=== PATIENT | female | born 1950 | race Caucasian/White ===

== ENCOUNTER 2018-01-14 13:40 | Observation (INO) | payer MEDICARE, BC ==
[2018-01-14] VITALS (10 sets, daily range): BP systolic 106–155; BP diastolic 64–101; PULSE 94–115; RESP 15–28; TEMP 97.6–98.5; O2SAT 93–100
[~2018-01-14] VITALS: Ht 160 cm; Wt 70.0 kg
[2018-01-14] MEDS ORDERED: IOHEXOL 350 MG/ML 10 ML VIAL (for RAD DIAG) IVCONTRAST ONE (13:41)
[2018-01-14] MEDS ORDERED: SODIUM CHLORID 0.9% 500 ML INJ 500 ML IV ONE (14:00)
[2018-01-14] MEDS ORDERED: SODIUM CHLORIDE 0.9% FLUSH 10 ML FLUSH IVF PRN (14:00)
[2018-01-14] MEDS ORDERED: MORPHINE SULFATE 4 MG/ML INJ IV PUSH ONE (14:00)
[2018-01-14] MEDS ORDERED: SALI0.653 EACH NARE (14:22)
[2018-01-14] MEDS ORDERED: MOBI15TA PO (14:22)
[2018-01-14] MEDS ORDERED: HYDR-3516 PO (14:22)
[2018-01-14] MEDS ORDERED: FAMO20TA2 PO (14:22)
[2018-01-14] MEDS ORDERED: COLA100C5 PO (14:22)
[2018-01-14] MEDS ORDERED: ESTR0.5T PO (14:22)
[2018-01-14] MEDS ORDERED: FLUT50SP EACH NARE (14:22)
[2018-01-14] MEDS ORDERED: ALBUAER3 INH (14:22)
[2018-01-14] MEDS ORDERED: ANTIHISTAMINE PO (14:22)
[2018-01-14] MEDS ORDERED: DIPH50CA PO (14:22)
[2018-01-14] MEDS ORDERED: CALC600T10 PO (14:22)
[2018-01-14] MEDS ORDERED: MULTTAB67 PO (14:22)
--- NOTE | 2018-01-14 14:37 | RADRPT ---
EXAM DATE/TIME: 01/14/2018 14:02 [facility] COMPARISON: No previous studies available for comparison. INDICATIONS : Chest pain today. MEDICAL HISTORY : Asthma. SURGICAL HISTORY : None. ENCOUNTER: Initial ACUITY: 1 day PAIN SCORE: 9/10 LOCATION: Bilateral chest FINDINGS: A single view of the chest demonstrates the lungs to be symmetrically aerated without evidence of mas s, infiltrate or effusion. The cardiomediastinal contours are unremarkable. Osseous structures are intact. CONCLUSION: No acute disease. Franco Zambrano MD on January 14, 2018 at 14:35 Board Certified Radiologist. This report was verified electronically.
[2018-01-14 14:42] LABS: AUTOMATED NEUTROPHIL # 11.9 TH/MM3 (1.8-7.7); BASOPHIL % 0.3 % (0.0-2.0); EOSINOPHIL # 0.1 TH/MM3 (0-0.4); EOSINOPHIL % 0.6 % (0.0-4.0); HEMATOCRIT 42.6 % (35.0-46.0); HEMOGLOBIN 14.6 GM/DL (11.6-15.3); LYMPH % 7.2 % (9.0-44.0); MEAN CELL VOLUME 95.9 FL (80.0-100.0); MEAN CORPUSCULAR HEMOGLOBIN 32.9 PG (27.0-34.0); MEAN CORPUSCULAR HGB CONC 34.3 % (32.0-36.0); MEAN PLATELET VOLUME 6.9 FL (7.0-11.0); NEUT % 84.9 % (16.0-70.0); PLATELET COUNT 350 TH/MM3 (150-450); RED BLOOD COUNT 4.45 MIL/MM3 (4.00-5.30); RED CELL DISTRIBUTION WIDTH 13.1 % (11.6-17.2)
[2018-01-14 14:54] LABS: PROTHROMBIN TIME - PATIENT 9.8 SEC (9.8-11.6)
[2018-01-14 15:02] LABS: ALT (GPT) 20 U/L (10-53); AST (GOT) 17 U/L (15-37); BLOOD UREA NITROGEN 12 MG/DL (7-18); CALCIUM 9.2 MG/DL (8.5-10.1); CHLORIDE 107 MEQ/L (98-107); CREATININE 0.95 MG/DL (0.50-1.00); GLOMERULAR FILTRATION RATE 58 ML/MIN (>89); GLUCOSE,RANDOM 109 MG/DL (74-106); SODIUM (NA) 141 MEQ/L (136-145)
[2018-01-14 15:06] LABS: ALKALINE PHOSPHATASE 85 U/L (45-117); TOTAL BILIRUBIN ADULT 0.4 MG/DL (0.2-1.0); TOTAL PROTEIN 7.8 GM/DL (6.4-8.2); TROPONIN I LESS THAN 0.02 NG/ML (0.02-0.05)
--- NOTE | 2018-01-14 15:38 | PD ---
HPI Chief Complaint: Cardiac Complaint Time Seen by Provider: 13:46 Travel History International Travel<30 days: No Contact w/Intl Traveler<30days: No Traveled to known affect area: No History of Present Illness HPI Patient is a 67 year old female who comes in complaining of chest pain that radiates to her left shoulder. She says it started early this morning and has gotten worse. She took some Excedrin when it first started, and it did not help. She says the pain continued and got worse, so she took some Aspirin and came in. She says she feels some shortness of breath. She denies nausea or vomiting. She says nothing seems to make the pain better or worse. She has never had this pain before. Severity is moderate. PFSH Past Medical History Diminished Hearing: No Tetanus Vaccination: Unknown Influenza Vaccination: Yes ?: Not Menopausal: Yes Past Surgical History Genitourinary Surgery: Yes (BLADDER SLING, BLADDER SURGERY ) Gynecologic Surgery: Yes (HYSTERECTOMY ) Hysterectomy: Yes Tonsillectomy: Yes Other Surgery: Yes (FOOT SURGERY ) Social History Alcohol Use: Yes Tobacco Use: No Substance Use: No Allergies-Medications (Allergen,Severity, Reaction): Coded Allergies: No Known Allergies (Unverified , 01/14/18) Reported Meds & Prescriptions Reported Meds & Active Scripts Active Reported Saline Nasal [place] (Sodium Chloride) 0.65% [place] 1 [place] EACH NARE DAILY Fluticasone Nasal [place] 50 Mcg/Act Naspr 1 [place] EACH NARE DAILY 50 mcg/spray Colace (Docusate Sodium) 100 Mg Capsule 100 Mg PO BID Famotidine 20 Mg Tab 20 Mg PO DAILY [Antihistamine] 25 Mg PO BID Diphenhydramine HCl 50 Mg Cap 50 Mg PO HS Calcium + D3 (Calcium Carbonate-Cholecalciferol) 600-200 Mg-Unit Tab 1 Tab PO BID Multiple Vitamin 1 Tab 1 Tab PO DAILY Hydrocodone-Acetaminophen 5-325 mg Tab 2 Tab PO BID Proair Hfa 8.5 GM Inh (Albuterol Sulfate) 90 Mcg/Act Aer 1 Puff INH Q4H PRN 108 mcg/actuation Mobic (Meloxicam) 15 Mg Tab 15 Mg PO DAILY Estradiol 0.5 Mg Tab 0.5 Mg PO DAILY Review of Systems Except as stated in HPI: all other systems reviewed are Neg General / Constitutional: No: Fever, Chills HENT: No: Headaches, Lightheadedness Cardiovascular: Positive: Chest Pain or Discomfort Respiratory: Positive: Shortness of Breath Gastrointestinal: No: Nausea, Vomiting Musculoskeletal: No: Edema Skin: No Rash, No Change in Pigmentation Neurologic: No: Weakness, Dizziness Physical Exam Narrative GENERAL: Awake and alert, in obvious discomfort. SKIN: Focused skin assessment warm/dry. HEAD: Atraumatic. Normocephalic. EYES: Pupils equal and round. No scleral icterus. ENT: Mucous membranes pink and moist. NECK: Trachea midline. No JVD. CARDIOVASCULAR: Regular rate and rhythm. No murmur appreciated. RESPIRATORY: No accessory muscle use. Clear to auscultation. Breath sounds equal bilaterally. GASTROINTESTINAL: Abdomen soft, non-tender, nondistended. MUSCULOSKELETAL: No obvious deformities. No clubbing. No cyanosis. No edema. NEUROLOGICAL: Awake and alert. No obvious cranial nerve deficits. Motor grossly within normal limits. Normal speech. PSYCHIATRIC: Appropriate mood and affect; insight and judgment normal. Data Data Last Documented VS Vital Signs Date Time Temp Pulse Resp B/P (MAP) Pulse Ox O2 Delivery O2 Flow Rate FiO2 01/14/18 17:48 94 15 132/91 (105) 95 01/14/18 14:50 Room Air 01/14/18 14:00 2.00 01/14/18 13:41 97.6 Orders Orders Electrocardiogram (01/14/18 ) Complete Blood Count With Diff (01/14/18 13:52) Comprehensive Metabolic Panel (01/14/18 13:52) Prothrombin Time / Inr (Pt) (01/14/18 13:52) Act Partial Throm Time (Ptt) (01/14/18 13:52) Troponin I (01/14/18 13:52) Lipase (01/14/18 13:52) Chest, Single Ap (01/14/18 13:52) Ecg Monitoring (01/14/18 13:52) Bilateral Bp Monitoring (01/14/18 13:52) Iv Access Insert/Monitor (01/14/18 13:52) Oximetry (01/14/18 13:52) Oxygen Administration (01/14/18 13:52) Morphine Inj (Morphine Inj) (01/14/18 14:00) Sodium Chloride 0.9% Flush (Ns Flush) (01/14/18 14:00) Sodium Chlorid 0.9% 500 Ml Inj (Ns 500 M (01/14/18 14:00) Ct Pulmonary Angiogram (01/14/18 13:52) Iohexol 350 Inj (Omnipaque 350 Inj) (01/14/18 13:41) Ketorolac Inj (Toradol Inj) (01/14/18 16:30) Oxycodone-Acetamin 5-325 Mg (Percocet (01/14/18 16:30) Activity Bed Rest With Brp (01/14/18 18:04) Vital Signs (Adult) Q4H (01/14/18 18:04) Cardiac Rhythm .As Directed (01/14/18 18:) Notify Dr: Other .PRN (01/14/18 18:) Notify Parameters (01/14/18 18:04) Resp Oxygen Nasal Cannula (01/14/18 ) Diet Heart Healthy (01/14/18 Dinner) Ckmb (Isoenzyme) Profile (01/14/18 18:04) Ckmb (Isoenzyme) Profile (01/14/18 21:04) Troponin I (01/14/18 18:04) Troponin I (01/14/18 21:04) Electrocardiogram (01/14/18 18:04) Electrocardiogram (01/14/18 21:04) ^ Obtain (01/14/18 18:04) Sodium Chloride 0.9% Flush (Ns Flush) (01/14/18 18:15) Sodium Chloride 0.9% Flush (Ns Flush) (01/14/18 21:00) Acetaminophen (Tylenol) (01/14/18 18:15) Acetamin-Hydrocod 325-7.5 Mg ([place] 7.5 (01/14/18 18:15) Morphine Inj (Morphine Inj) (01/14/18 18:15) Ondansetron Inj (Zofran Inj) (01/14/18 18:15) Melting Operator / Telemetry RYDER.Q8H (01/14/18 18:04) Admit Order (Ed Use Only) (01/14/18 ) Labs Laboratory Tests Test 01/14/18 13:58 White Blood Count 14.0 TH/MM3 Red Blood Count 4.45 MIL/MM3 Hemoglobin 14.6 GM/DL Hematocrit 42.6 % Mean Corpuscular Volume 95.9 FL Mean Corpuscular Hemoglobin 32.9 PG Mean Corpuscular Hemoglobin Concent 34.3 % Red Cell Distribution Width 13.1 % Platelet Count 350 TH/MM3 Mean Platelet Volume 6.9 FL Neutrophils (%) (Auto) 84.9 % Lymphocytes (%) (Auto) 7.2 % Monocytes (%) (Auto) 7.0 % Eosinophils (%) (Auto) 0.6 % Basophils (%) (Auto) 0.3 % Neutrophils # (Auto) 11.9 TH/MM3 Lymphocytes # (Auto) 1.0 TH/MM3 Monocytes # (Auto) 1.0 TH/MM3 Eosinophils # (Auto) 0.1 TH/MM3 Basophils # (Auto) 0.0 TH/MM3 CBC Comment DIFF FINAL Differential Comment Prothrombin Time 9.8 SEC Prothromb Time International Ratio 1.0 RATIO Activated Partial Thromboplast Time 26.1 SEC Blood Urea Nitrogen 12 MG/DL Creatinine 0.95 MG/DL Random Glucose 109 MG/DL Total Protein 7.8 GM/DL Albumin 4.0 GM/DL Calcium Level 9.2 MG/DL Alkaline Phosphatase 85 U/L Aspartate Amino Transf (AST/SGOT) 17 U/L Alanine Aminotransferase (ALT/SGPT) 20 U/L Total Bilirubin 0.4 MG/DL Sodium Level 141 MEQ/L Potassium Level 3.3 MEQ/L Chloride Level 107 MEQ/L Carbon Dioxide Level 24.0 MEQ/L Anion Gap 10 MEQ/L Estimat Glomerular Filtration Rate 58 ML/MIN Troponin I LESS THAN 0.02 NG/ML Lipase 147 U/L MDM Medical Decision Making Medical Screen Exam Complete: Yes Emergency Medical Condition: Yes Interpretation(s) ECG shows sinus tachycardia at 109, no ST elevation or depression Differential Diagnosis ACS vs NSTEMI vs STEMI vs PE Narrative Course Patient is a 67-year-old female who comes in complaining of chest pain radiating to her back. On arrival, patient is very uncomfortable. IV established, labs sent. Patient connected to the night monitor. Given pain medicine. Labs sent show no acute abnormalities. Troponin is negative. CT of the chest performed shows no acute abnormalities. Patient required additional pain medicine, but did start to feel better. Concern is for ACS. She will be placed in chest pain center for further management. Diagnosis Primary Impression: Chest pain Qualified Codes: R07.9 - Chest pain, unspecified Admitting Information Admitting Physician Requests: Observation Gracia Walsh MD Jan 14, 2018 15:38
--- NOTE | 2018-01-14 16:22 | RADRPT ---
EXAM DATE/TIME: 01/14/2018 15:54 [facility] COMPARISON: No previous studies available for comparison. INDICATIONS : Chest and upper back pain. IV CONTRAST: 57 cc Omnipaque 350 (iohexol) IV RADIATION DOSE: 9.75 CTDIvol (mGy) MEDICAL HISTORY : None SURGICAL HISTORY : None. ENCOUNTER: Initial ACUITY: 1 day PAIN SCALE: 7/10 LOCATION: substernal TECHNIQUE: Volumetric scanning of the chest was performed using a pulmonary embolism protocol MIP images were re constructed. Using automated exposure control and adjustment of the mA and/or kV according to patien t size, radiation dose was kept as low as reasonably achievable to obtain optimal diagnostic quality images. DICOM format image data is available electronically for review and comparison. Follow-up recommendations for detected pulmonary nodules are based at a minimum on nodule size and pa tient risk factors according to Fleischner Society Guidelines. FINDINGS: PULMONARY ARTERIES: No filling defects are seen in the pulmonary arteries through the segmental level. LUNGS: Bibasilar atelectasis and/or scarring is noted posteriorly. There is no consolidation or pneumothorax . No concerning pulmonary nodule is visualized. PLEURAE: There is no pleural thickening or pleural effusion. MEDIASTINUM: There is good visualization of the great vessels of the middle mediastinum. No evidence of mediastin al or hilar adenopathy/mass. Coronary artery calcifications are noted. MUSCULOSKELETAL: Within normal limits for patient age. MISCELLANEOUS: The visualized upper abdominal organs demonstrate no acute abnormality. Small hiatal hernia is noted CONCLUSION: 1. No evidence of pulmonary embolism. 2. Bibasilar posterior atelectasis and/or scarring. 3. Coronary artery calcifications. 4. Small hiatal hernia. Franco Zambrano MD on January 14, 2018 at 16:18 Board Certified Radiologist. This report was verified electronically.
[2018-01-14] MEDS ORDERED: KETOROLAC TROMETHAMINE 30 MG/ML (IVP) VIAL IV PUSH ONE (16:30)
[2018-01-14] MEDS ORDERED: oxyCODONE/ACETAMINOPHEN 5 MG/325 MG TAB PO ONE (16:30)
[2018-01-14] MEDS ORDERED: MORPHINE SULFATE 4 MG/ML INJ IV PUSH PRN (18:15)
[2018-01-14] MEDS ORDERED: SODIUM CHLORIDE 0.9% FLUSH 10 ML FLUSH IV FLUSH PRN (18:15)
[2018-01-14] MEDS ORDERED: ONDANSETRON HCL 4 MG/2 ML VIAL IV PUSH PRN (18:15)
[2018-01-14] MEDS ORDERED: ACETAMINOPHEN 500 MG CPLT PO PRN (18:15)
[2018-01-14 19:08] LABS: TROPONIN I LESS THAN 0.02 NG/ML (0.02-0.05)
[2018-01-14 23:00] LABS: TROPONIN I LESS THAN 0.02 NG/ML (0.02-0.05)
[2018-01-14] MEDS: SODIUM CHLORIDE 0.9% FLUSH 10 ML FLUSH IV FLUSH SCH (23:41)
[2018-01-14] MEDS: ACETAMINOPHEN/HYDROcodone 325 MG/7.5 MG TAB PO PRN (23:43)
[2018-01-15 00:22] VITALS: PULSE 91
[2018-01-15 03:19] VITALS: BP 111/68; PULSE 97; RESP 18; TEMP 98.6; O2SAT 94
[2018-01-15] MEDS: ACETAMINOPHEN/HYDROcodone 325 MG/7.5 MG TAB PO PRN (03:46)
[2018-01-15 04:15] VITALS: PULSE 69
[2018-01-15] MEDS ORDERED: NITROGLYCERIN 0.4 MG SL 25 TABS/BTL SL PRN (07:30)
--- NOTE | 2018-01-15 08:11 | HHI.HP ---
HPI Primary Care Physician Primary Care Physician in [place] Chief Complaint Chest pain History of Present Illness 67 year old female without significant medical history presents to ER for further evaluation of chest pain. Onset yesterday morning 0530am. She was awaken from sleep with discomfort. Location substernal. Pain began as an ache. Midmorning discomfort changed to more of a pressure feeling and described "as someone sitting on my chest. Discomfort progressive became worse therefore came to ER for further evaluation. Severity moderate. Radiation to upper back. Duration constant. Associated symptoms included dyspnea and hurting to take a deep breath. No associated symptoms of nausea, vomiting, or diaphoreses. Twisting or laying on either side makes pain worse. Percocet given in ER relieved pain enough to allow sleeping a few hours last evening. Denies similar pain in the past. No recent illness within the last 6 weeks. Review of Systems General: No fatigue,weakness, fever, chills, recent illness, or change in appetite. Has been her general state of health. Visiting from [place], plans to return February 05. HEENT: No TREVINO, no vision changes, no nasal congestion or drainage, no dysphasia CV: Continues to have chest pain as stated above. RESP: No SOB, cough, wheeze, or recent URI. History of asthma, reporting rare need of rescue inhaler in last 2 years. GI: No nausea, vomiting, bowel changes. No change in appetite. : No dysuria, urgency, frequency. History of bladder suspension. EXT: No lower leg edema, no paraesthesias MS: No discomfort, recent injury, trauma, or change in ROM. Recent Left total knee replacement. NEURO: No change in memory, dizziness, difficulty with balance, LOC, motor/ sensory deficits PSYCH: No anxiety, depression, or situational stress. SKIN: No rashes, no concerning lesions Past Family Social History Allergies: Coded Allergies: No Known Allergies (Unverified , 01/14/18) Past Medical History GERD, asthma, seasonal allergies Past Surgical History Hysterectomy, bladder suspension, left total knee replacement, right meniscus repair, tonsillectomy Reported Medications Reported Meds & Active Scripts Active Reported Saline Nasal [place] (Sodium Chloride) 0.65% [place] 1 [place] EACH NARE DAILY Fluticasone Nasal [place] 50 Mcg/Act Naspr 1 [place] EACH NARE DAILY 50 mcg/spray Colace (Docusate Sodium) 100 Mg Capsule 100 Mg PO BID Famotidine 20 Mg Tab 20 Mg PO DAILY [Antihistamine] 25 Mg PO BID Diphenhydramine HCl 50 Mg Cap 50 Mg PO HS Calcium + D3 (Calcium Carbonate-Cholecalciferol) 600-200 Mg-Unit Tab 1 Tab PO BID Multiple Vitamin 1 Tab 1 Tab PO DAILY Hydrocodone-Acetaminophen 5-325 mg Tab 2 Tab PO BID PRN Proair Hfa 8.5 GM Inh (Albuterol Sulfate) 90 Mcg/Act Aer 1 Puff INH Q4H PRN 108 mcg/actuation Mobic (Meloxicam) 15 Mg Tab 15 Mg PO DAILY Estradiol 0.5 Mg Tab 0.5 Mg PO DAILY Active Ordered Medications Current Medications Medications (Trade) Dose Ordered Sig/Nelson Route Start Time Stop Time Status Last Admin (NS Flush) 2 ml UNSCH PRN IVF 01/14/18 14:00 01/14/18 15:21 (NS Flush) 2 ml UNSCH PRN IV FLUSH 01/14/18 18:15 (NS Flush) 2 ml BID IV FLUSH 01/14/18 21:00 01/14/18 23:41 (Tylenol) 500 mg Q4H PRN PO 01/14/18 18:15 ([place] 7.5-325 Mg) 1 tab Q4H PRN PO 01/14/18 18:15 01/15/18 03:46 (Morphine Inj) 2 mg Q4H PRN IV PUSH 01/14/18 18:15 (Zofran Inj) 4 mg Q6H PRN IV PUSH 01/14/18 18:15 (Nitrostat Sl) 0.4 mg Q5M PRN SL 01/15/18 07:30 (Aspirin) 325 mg DAILY PO 01/15/18 09:00 Family History Noncontributory for early onset cardiovascular disease. Social History No known coronary artery disease, hypertension, diabetes, or hyperlipidemia. Former smoker quitting over 35 years ago. Denies any alcohol use. Retired. . Lives in [place]. Endorses active lifestyle, somewhat reduced s/p left knee replacement Fall 2016. Past cardiac testing Nuclear chemical cardiac testing approx. 6 years ago. Reportedly unremarkable. Testing completed after a syncopal event. Physical Exam Vital Signs Vital Signs Date Time Temp Pulse Resp B/P (MAP) Pulse Ox O2 Delivery O2 Flow Rate FiO2 3/23/18 04:50 21 01/15/18 03:19 98.6 97 18 111/68 (82) 94 01/14/18 20:13 98.5 98 17 127/81 (96) 93 01/14/18 19:52 01/14/18 19:30 98 Nasal Cannula 3.00 01/14/18 18:59 100 16 131/81 (98) 98 Nasal Cannula 3.00 01/14/18 18:09 21 01/14/18 17:48 94 15 132/91 (105) 95 01/14/18 14:50 96 18 100 Room Air 01/14/18 14:00 99 Nasal Cannula 2.00 01/14/18 13:58 109 18 153/97 (115) 99 01/14/18 13:50 110 24 106/64 (78) 99 Room Air 01/14/18 13:47 Room Air 01/14/18 13:41 97.6 115 28 146/101 (116) 94 01/14/18 13:40 110 28 155/101 (119) 98 Room Air Physical Exam GENERAL: Alert WN, WD, NAD, pleasant, , elderly female HEAD: NC, AT CV: RRR, without murmur, rub, gallop, no JVD, S1-S2 no S3-S4. Substernal point tenderness with palpation. RESP: Clear lungs throughout bilateral, no crackles, wheeze, rhonchi, symmetrical chest rise, nonlabored, able to speak in full sentences ABD: Soft, NT, ND, no masses, positive bowel tones EXT: Pulses +24, no dependent edema MS: Normal tone 4 extremities, nontender, no obvious deformities, full range of motion NEURO: CN II through CN XII grossly intact, motor strength 5/5 PSYCH: A+O 3, pleasant affect, appropriate speech, mood, insight and judgment SKIN: Normal turgor, normal texture, no lesions, no rashes, even hair distribution Laboratory Laboratory Tests Test 01/14/18 13:58 01/14/18 18:30 01/14/18 21:32 White Blood Count 14.0 Red Blood Count 4.45 Hemoglobin 14.6 Hematocrit 42.6 Mean Corpuscular Volume 95.9 Mean Corpuscular Hemoglobin 32.9 Mean Corpuscular Hemoglobin Concent 34.3 Red Cell Distribution Width 13.1 Platelet Count 350 Mean Platelet Volume 6.9 Neutrophils (%) (Auto) 84.9 Lymphocytes (%) (Auto) 7.2 Monocytes (%) (Auto) 7.0 Eosinophils (%) (Auto) 0.6 Basophils (%) (Auto) 0.3 Neutrophils # (Auto) 11.9 Lymphocytes # (Auto) 1.0 Monocytes # (Auto) 1.0 Eosinophils # (Auto) 0.1 Basophils # (Auto) 0.0 CBC Comment DIFF FINAL Differential Comment Prothrombin Time 9.8 Prothromb Time International Ratio 1.0 Activated Partial Thromboplast Time 26.1 Blood Urea Nitrogen 12 Creatinine 0.95 Random Glucose 109 Total Protein 7.8 Albumin 4.0 Calcium Level 9.2 Alkaline Phosphatase 85 Aspartate Amino Transf (AST/SGOT) 17 Alanine Aminotransferase (ALT/SGPT) 20 Total Bilirubin 0.4 Sodium Level 141 Potassium Level 3.3 Chloride Level 107 Carbon Dioxide Level 24.0 Anion Gap 10 Estimat Glomerular Filtration Rate 58 Troponin I LESS THAN 0.02 LESS THAN 0.02 LESS THAN 0.02 Lipase 147 Total Creatine Kinase 81 146 Creatine Kinase MB 2.1 Result Diagram: 01/14/18 1358 01/14/18 1358 Imaging Last 48 hours Impressions Chest X-Ray 01/14/18 1352 Signed Impressions: Service Date/Time: December 14:02 - CONCLUSION: No acute disease. Franco Zambrano MD CT Angiography 01/14/18 1352 Signed Impressions: Service Date/Time: December 15:54 - CONCLUSION: 1. No evidence of pulmonary embolism. 2. Bibasilar posterior atelectasis and/or scarring. 3. Coronary artery calcifications. 4. Small hiatal hernia. Franco Zambrano MD Course EKG NSR, normal axis, no st t segment changes Caprini VTE Risk Assessment Caprini VTE Risk Assessment: Mod/High Risk (score >= 2) Caprini Risk Assessment Model Point Value = 1 Point Value = 2 Point Value = 3 Point Value = 5 Age 41-60 Minor surgery BMI > 25 kg/m2 Swollen legs Varicose veins or History of unexplained or recurrent spontaneous Oral contraceptives or hormone replacement Sepsis (< 1 month) Serious lung disease, including pneumonia (< 1 month) Abnormal pulmonary function Acute myocardial infarction Congestive heart failure (< 1 month) History of inflammatory bowel disease Medical patient at bed rest Age 61-74 Arthroscopic surgery Major open surgery (> 45 min) Laparoscopic surgery (> 45 min) Malignancy Confined to bed (> 72 hours) Immobilizing plaster cast Central venous access Age >= 75 History of VTE Family history of VTE Factor V Leiden Prothrombin [id number] Lupus anticoagulant Anticardiolipin antibodies Elevated serum homocysteine Heparin-induced thrombocytopenia Other congenital or acquired thrombophilia Stroke (< 1 month) Elective arthroplasty Hip, pelvis, or leg fracture Acute spinal cord injury (< 1 month) Prophylaxis Regimen Total Risk Factor Score Risk Level Prophylaxis Regimen 0-1 Low Early ambulation 2 Moderate Order ONE of the following: *Sequential Compression Device (SCD) *Heparin 5000 units SQ BID 3-4 Higher Order ONE of the following medications: *Heparin 5000 units SQ TID *Enoxaparin/Lovenox 40 mg SQ daily (WT < 150 kg, CrCl > 30 mL/min) *Enoxaparin/Lovenox 30 mg SQ daily (WT < 150 kg, CrCl > 10-29 mL/min) *Enoxaparin/Lovenox 30 mg SQ BID (WT < 150 kg, CrCl > 30 mL/min) AND/OR *Sequential Compression Device (SCD) 5 or more Highest Order ONE of the following medications: *Heparin 5000 units SQ TID (Preferred with Epidurals) *Enoxaparin/Lovenox 40 mg SQ daily (WT < 150 kg, CrCl > 30 mL/min) *Enoxaparin/Lovenox 30 mg SQ daily (WT < 150 kg, CrCl > 10-29 mL/min) *Enoxaparin/Lovenox 30 mg SQ BID (WT < 150 kg, CrCl > 30 mL/min) AND *Sequential Compression Device (SCD) Assessment and Plan Assessment and Plan #1 Atypical chest pain-admitted to chest pain center. Ruled out with 3 sets of EKGs, cardiac enzymes, and monitored overnight. Will be seen and evaluated by Dr. Solomon Rios. Discussed likelihood of completing a Lexiscan later this morning, after evaluation by ic design manager. Patient is agreeable to plan of care. Naturally, if cardiac testing unremarkable plans to discharge home with follow up with her PCP. Patient is agreeable to plan of care. #2 Musculoskeletal chest discomfort-reassurance provided discomfort appears to be musculoskeletal in nature. Upon discharge will encouraged use of short term NSAIDs x3 days and use of heat to affected area. Fern Gandhi Jan 15, 2018 08:10
[2018-01-15 08:39] VITALS: BP 112/75; PULSE 89; RESP 18; TEMP 98.3; O2SAT 94
[2018-01-15] MEDS ORDERED: ASPIRIN 325 MG TAB PO SCH (09:00)
[2018-01-15] MEDS: SODIUM CHLORIDE 0.9% FLUSH 10 ML FLUSH IV FLUSH SCH (09:26)
--- NOTE | 2018-01-15 10:41 | PD.CARD.PN ---
Subjective Subjective Remarks The patient was discussed with the nurse practitioner, medical records were reviewed and she was then seen and examined personally. She is a 67-year-old lady who developed pleuritic chest pain with some shortness of breath. The record as documented is appropriate. She underwent a left knee replacement about 6 months ago but has a negative CT of the lungs other than a mild hiatal hernia and some coronary calcification. Her pain has improved significantly since hospitalization and she is ruled out thus far using standard protocol. We will obtain a nuclear stress test for more definitive evaluation of her heart. Objective Medications Current Medications Medications (Trade) Dose Ordered Sig/Nelson Route Start Time Stop Time Status Last Admin (NS Flush) 2 ml UNSCH PRN IVF 01/14/18 14:00 01/14/18 15:21 (NS Flush) 2 ml UNSCH PRN IV FLUSH 01/14/18 18:15 (NS Flush) 2 ml BID IV FLUSH 01/14/18 21:00 01/15/18 09:26 (Tylenol) 500 mg Q4H PRN PO 01/14/18 18:15 ([place] 7.5-325 Mg) 1 tab Q4H PRN PO 01/14/18 18:15 01/15/18 03:46 (Morphine Inj) 2 mg Q4H PRN IV PUSH 01/14/18 18:15 (Zofran Inj) 4 mg Q6H PRN IV PUSH 01/14/18 18:15 (Nitrostat Sl) 0.4 mg Q5M PRN SL 01/15/18 07:30 (Aspirin) 325 mg DAILY PO 01/15/18 09:00 01/15/18 09:26 Vital Signs / I&O Vital Signs Date Time Temp Pulse Resp B/P (MAP) Pulse Ox O2 Delivery O2 Flow Rate FiO2 01/15/18 08:39 98.3 89 18 112/75 (87) 94 01/15/18 04:50 21 01/15/18 04:15 69 01/15/18 03:19 98.6 97 18 111/68 (82) 94 01/15/18 00:22 91 01/14/18 21:22 96 01/14/18 20:13 98.5 98 17 127/81 (96) 93 01/14/18 19:52 3/22/18 19:30 98 Nasal Cannula 3.00 01/14/18 18:59 100 16 131/81 (98) 98 Nasal Cannula 3.00 01/14/18 18:09 21 01/14/18 17:48 94 15 132/91 (105) 95 01/14/18 14:50 96 18 100 Room Air 01/14/18 14:00 99 Nasal Cannula 2.00 01/14/18 13:58 109 18 153/97 (115) 99 01/14/18 13:50 110 24 106/64 (78) 99 Room Air 01/14/18 13:47 Room Air 01/14/18 13:41 97.6 115 28 146/101 (116) 94 01/14/18 13:40 110 28 155/101 (119) 98 Room Air I/O 01/14/18 01/14/18 01/14/18 01/15/18 01/15/18 01/15/18 07:00 15:00 23:00 07:00 15:00 23:00 Intake Total 500 ml Balance 500 ml Intake IV Total 500 ml Physical Exam Well-nourished well-developed woman in no acute distress sitting comfortably visiting with her . Neck no JVD masses nodes or bruits Chest is tender along the costochondral junctions although this is significant is probably not the cause of her current pleuritic chest pain Lungs are clear to auscultation with no rales wheezes or rhonchi but it is difficult for her to take a deep breath Cardiovascular evaluation reveals a regular rhythm with no gallop rub or murmur Abdomen soft nontender Laboratory Laboratory Tests Test 01/14/18 13:58 01/14/18 18:30 01/14/18 21:32 White Blood Count 14.0 TH/MM3 Red Blood Count 4.45 MIL/MM3 Hemoglobin 14.6 GM/DL Hematocrit 42.6 % Mean Corpuscular Volume 95.9 FL Mean Corpuscular Hemoglobin 32.9 PG Mean Corpuscular Hemoglobin Concent 34.3 % Red Cell Distribution Width 13.1 % Platelet Count 350 TH/MM3 Mean Platelet Volume 6.9 FL Neutrophils (%) (Auto) 84.9 % Lymphocytes (%) (Auto) 7.2 % Monocytes (%) (Auto) 7.0 % Eosinophils (%) (Auto) 0.6 % Basophils (%) (Auto) 0.3 % Neutrophils # (Auto) 11.9 TH/MM3 Lymphocytes # (Auto) 1.0 TH/MM3 Monocytes # (Auto) 1.0 TH/MM3 Eosinophils # (Auto) 0.1 TH/MM3 Basophils # (Auto) 0.0 TH/MM3 CBC Comment DIFF FINAL Differential Comment Prothrombin Time 9.8 SEC Prothromb Time International Ratio 1.0 RATIO Activated Partial Thromboplast Time 26.1 SEC Blood Urea Nitrogen 12 MG/DL Creatinine 0.95 MG/DL Random Glucose 109 MG/DL Total Protein 7.8 GM/DL Albumin 4.0 GM/DL Calcium Level 9.2 MG/DL Alkaline Phosphatase 85 U/L Aspartate Amino Transf (AST/SGOT) 17 U/L Alanine Aminotransferase (ALT/SGPT) 20 U/L Total Bilirubin 0.4 MG/DL Sodium Level 141 MEQ/L Potassium Level 3.3 MEQ/L Chloride Level 107 MEQ/L Carbon Dioxide Level 24.0 MEQ/L Anion Gap 10 MEQ/L Estimat Glomerular Filtration Rate 58 ML/MIN Troponin I LESS THAN 0.02 NG/ML LESS THAN 0.02 NG/ML LESS THAN 0.02 NG/ML Lipase 147 U/L Total Creatine Kinase 81 U/L 146 U/L Creatine Kinase MB 2.1 NG/ML Imaging Last 24 hours Impressions Chest X-Ray 01/14/18 1352 Signed Impressions: Service Date/Time: December 14:02 - CONCLUSION: No acute disease. Franco Zambrano MD CT Angiography 01/14/18 1352 Signed Impressions: Service Date/Time: December 15:54 - CONCLUSION: 1. No evidence of pulmonary embolism. 2. Bibasilar posterior atelectasis and/or scarring. 3. Coronary artery calcifications. 4. Small hiatal hernia. Franco Zambrano MD Assessment and Plan Assessment and Plan She is ruled out using standard chest pain center protocol and will be evaluated with a nuclear stress test. Pain is felt to be most likely secondary to pleurisy but also complicated by some costochondritis. Discussed Condition With Her condition was discussed with patient and and with nurse practitioner Solomon Rios MD Jan 15, 2018 10:41
[2018-01-15] MEDS ORDERED: REGADENOSON INJ 0.4 MG/5 ML SYR ONE (12:21)
--- NOTE | 2018-01-15 13:53 | RADRPT ---
EXAM DATE/TIME: 01/15/2018 12:06 [facility] COMPARISON: No previous studies available for comparison. INDICATIONS : Substernal chest pain radiating to left arm with dyspnea. Angina. DOSE: 25.9 mCi Tc99m Myoview at stress. 8.1 mCi Tc99m Myoview at rest. 0.4 mg Lexiscan STRESS SYMPTOMS: Short of breath and chest tightness. EJECTION FRACTION: 47% MEDICAL HISTORY : None SURGICAL HISTORY : Hysterectomy. Tonsillectomy. Bladder sling and foot surgery. ENCOUNTER: Initial ACUITY: 1 day PAIN SCALE: 5/10 LOCATION: Substernal chest TECHNIQUE: The patient underwent pharmacologic stress with infusion of prescribed dose. Continuous ECG tracing was monitored during stress. Gated SPECT imaging was performed after stress and conventional SPECT i maging was performed at rest. The examination was performed on a SPECT/CT scanner, both attenuation and non-corrected datasets were reviewed. FINDINGS: DISTRIBUTION: The maximum perfused segment at stress is in the inferior wall. PERFUSION STUDY: The pattern of perfusion at stress is within normal limits. GATED STUDY: Mild global hypokinesia. CONCLUSION: 1. No definite infarct or ischemia. 2. Mild global hypokinesia with reduced EF of 47%. RISK CATEGORY: Intermediate (1-3% Annual Mortality Rate) Guzman Zhu MD on January 15, 2018 at 13:45 Board Certified Radiologist. This report was verified electronically.
--- NOTE | 2018-01-15 14:23 | HHI.DCPOC ---
Discharge Care Plan Diagnosis: (1) Musculoskeletal chest pain Goals to Promote Your Health * To prevent worsening of your condition and complications * To maintain your health at the optimal level Directions to Meet Your Goals Take your medications as prescribed Follow your dietary instruction Follow activity as directed Keep your appointments as scheduled Take your immunizations and boosters as scheduled If your symptoms worsen call your PCP, if no PCP go to Urgent Care Center or Emergency Room Smoking is Dangerous to Your Health. Avoid second hand smoke Call the 24-hour hour crisis hotline for domestic abuse at [facility] Jan 15, 2018 14:23
--- NOTE | 2018-01-16 12:32 | EKG ---
Date Performed: 01/14/2018 Time Performed: 22:06:08 PTAGE: 67 years EKG: Sinus rhythm NORMAL ECG PREVIOUS TRACING : 01/14/2018 18.40 DOCTOR: Solomon Rios Interpretating Date/Time 01/16/2018 12:32:26
--- NOTE | 2018-01-16 12:33 | EKG ---
Date Performed: 01/14/2018 Time Performed: 18:40:03 PTAGE: 67 years EKG: Sinus rhythm MINIMAL VOLTAGE CRITERIA FOR LVH, CONSIDER NORMAL VARIANT BORDERLINE ECG Rate has slowed but otherwi se largely unchanged PREVIOUS TRACING : 01/14/2018 13.50 DOCTOR: Solomon Rios Interpretating Date/Time 01/16/2018 12:33:10
--- NOTE | 2018-01-16 12:34 | EKG ---
Date Performed: 01/14/2018 Time Performed: 13:50:25 PTAGE: 67 years EKG: SINUS TACHYCARDIA POSSIBLE LEFT ATRIAL ENLARGEMENT ABNORMAL RHYTHM ECG NO PREVIOUS TRACING DOCTOR: Solmoon Rios Interpretating Date/Time 01/16/2018 12:33:47
--- NOTE | 2018-01-16 12:40 | TR ---
Date Performed: 01/15/2018 Time Performed: 12:25:54 DOCTOR: Solomon Rios DRUG LIST: CLINICAL HISTORY: REASON FOR TEST: REASON FOR ENDING: OBSERVATION: CONCLUSION: Lexiscan stress test was performed under standard four minute protocol. Radionuclide was injected one minute prior to ending the test. No electrocardiographic abormalities were present to suggest ischemia. Nuclear imaging and interpretation are pending. COMMENTS:
== END 2018-01-15 15:41 | disposition home or self-care (01) ==
LOC: NEPC 13:40 → NEDA 18:06 → UNDOADMIN 18:06 → NEDA 19:48 → NEPFCDU 19:48
PROVIDERS: ADMIT Internal Medicine Interventional Cardiology; ATTEND Internal Medicine Interventional Cardiology
DX: M94.0 Chondrocostal junction syndrome [Tietze] (principal); R09.1 Pleurisy; R94.31 Abnormal electrocardiogram [ECG] [EKG]; K21.9 Gastro-esophageal reflux disease without esophagitis; K44.9 Diaphragmatic hernia without obstruction or gangrene; J45.909 Unspecified asthma, uncomplicated; Z87.891 Personal history of nicotine dependence; Z90.710 Acquired absence of both cervix and uterus
CPT/HCPCS: 71045; 71275; 78452; 80053; 82550; 82552; 83690; 84484; 85025; 85610; 85730; 93005; 93017; 96361; 96374; 96375; 96376; 99285; A9502; G0378; J1885; J2270; J2785; J7040; Q9967